=== PATIENT | male | born 1965 ===

== ENCOUNTER 2020-07-17 14:53 | Emergency (ER) | payer OTHER, SELFPAY ==
[2020-07-17 15:01] VITALS: BP 144/83; PULSE 73; RESP 18; TEMP 37.1; O2SAT 98; BMI 27.9
--- NOTE | 2020-07-17 15:32 | ED_ITS ---
HPI - Wound/Laceration General Chief Complaint: Wound/Laceration Stated Complaint: injured ring finger right hand Time Seen by Provider: 07/17/20 15:00 Source: patient Mode of arrival: Ambulatory Limitations: no limitations History of Present Illness HPI narrative: Patient is a 54-year-old male who presents with right ring finger injury. He was doing some woodworking with a joint are it slipped and kicked back injuring his distal tip of his finger. He immediately wrapped it he has no numbness or tingling. Onset (ago): hour(s) Related Data Home Medications Medication Instructions Recorded Confirmed bupropion HCl 300 mg 24 hr tablet, 300 mg PO QAM 11/27/18 11/27/18 extended release citalopram 20 mg tablet 20 mg PO DAILY 11/27/18 11/27/18 Previous Rx's Medication Instructions Recorded cephalexin [Keflex] 500 mg PO TID #21 cap 07/17/20 hydrocodone-acetaminophen 1 tab PO Q6H PRN #10 tab 07/17/20 Allergies Allergy/AdvReac Type Severity Reaction Status Date / Time No Known Drug Allergies Allergy Unverified 11/27/18 13:17 Review of Systems Review of Systems Narrative: GENERAL: Denies chills,fever HEENT: Denies throat pain RESPIRATORY: Denies dyspnea, cough, wheezing CARDIOVASCULAR: Denies chest pain, palpitations GASTROINTESTINAL: Denies nausea, vomiting MUSCULOSKELETAL: Denies extremity pain, injury SKIN: See HPI NEUROLOGIC: Denies weakness, dizziness, headache, numbness 8 point review of systems is negative except for those stated above and HPI Patient History Social History Smoking Status: Never smoker Smoking Status: Never smoker Substance Use Type: does not use Exam Initial Vital Signs Initial Vital Signs: Vital Signs Temperature 98.7 F 07/17/20 15:01 Pulse Rate 73 07/17/20 15:01 Respiratory Rate 18 07/17/20 15:01 Blood Pressure 144/83 H 07/17/20 15:01 Pulse Oximetry 98 07/17/20 15:01 GENERAL: Well-appearing, well-nourished and in no acute distress. CARDIOVASCULAR: peripheral pulses in tact, cap refill <2 sec RESPIRATORY: No respiratory distress, speaks in full sentences without difficulty EXTREMITIES: Normal range of motion, no clubbing or edema. Neurovascularly intact NEUROLOGICAL: Cranial nerves II through XII grossly intact. Normal gait and speech. SKIN: Right ring finger nail bed seems to be really moved GI Inspection: non-distended Palpation: soft, no hepatosplenomegaly, No guarding, No pulsatile mass and No tender Auscultation: normal bowel sounds Skin Fingers- Fingertip Back: 1. Finger nail is completely removed blood clot is noted. Neurovascularly intact Course Orders Ordered: ED Orders 07/17/20 15:35 XR finger RT min 2V Stat 07/17/20 15:38 COVID19 Stat Discontinued Medications Cefazolin Sodium (Cefazolin 1 Gm Vial) 1 gm IV NOW ONE Stop: 07/17/20 16:08 Last Admin: 07/17/20 16:39 Dose: Not Given Documented by: SWETA Cefazolin Sodium/Dextrose (Ancef) 1 gm in 50 mls @ 200 mls/hr IV NOW ONE Stop: 07/17/20 16:36 Last Admin: 07/17/20 16:34 Dose: 200 mls/hr Documented by: SWETA Vital Signs Vital signs: Vital Signs - 8 hr 07/17/20 15:01 07/17/20 17:45 Temperature 98.7 F Pulse Rate 73 84 Respiratory Rate 18 16 Blood Pressure 144/83 H 134/67 Pulse Oximetry 98 97 MDM - Wound/Laceration Lab Data Labs: Lab Results 07/17/20 Range/Units 15:38 COVID-19 PCR Negative (Negative) Imaging Data Extremity x-ray #1: Radiologist's Impression: PROCEDURE: XR FINGER RT MIN 2V INDICATIONS: 4th finger cut with wood tool TECHNIQUE: AP hand, 2 views of the ring finger(s) acquired. COMPARISON: None. FINDINGS: Bones: No displaced fracture. Subtle lucency along the distal aspect of the d istal phalanx noted on the frontal and oblique view views without definite correlation on the lateral view. No dislocation. Soft tissues: Soft tissue abnormality of the distal ring finger with overlying bandage. IMPRESSION: Lucency along the distal aspect of the distal phalanx noted on the frontal and oblique views may represent nondisplaced fracture versus artifact from overlying bandage. If clarification is necessary, consider repeat exam without bandage. Dictated by: Tomas Lagos D.O. on 07/17/2020 at 15:01 [facility] Narrative Medical decision making narrative: Dr. Elizabeth has been notified of patient. At this time recommends dressing and follow-up in clinic tomorrow Patient has been irrigated by myself and given 1 dose of Ancef. COVID is negative and tetanus is up-to-date. Discharge Plan Departure Patient Disposition: Home Clinical Impression: Laceration of right ring finger Qualifiers: Encounter type: initial encounter Damage to nail status: with damage Foreign body presence: without foreign body Qualified Code(s): S61.314A - Laceration without foreign body of right ring finger with damage to nail, initial encounter Instructions: DI for Laceration Repair Activity Restrictions/Additional Instructions: *You have been diagnosed with right ring finger laceration *What to do: At this time recommend follow-up with Orthopedics. Keep bandage on at least until tomorrow. And then you may remove keep clean with soap and water. Apply new bandage *Continue to take medications as directed Keflex 500 mg 3 times a day for 7 days [place] 1 tablet every 6 hours if needed for severe pain *Follow up with your primary care provider in 2-[address] Elizabeth orthopedics tomorrow to schedule follow-up appointment *Return to ER if you should have increasing redness pus or swelling or any new, worsening or concerning symptoms CONTROLLED SUBSTANCE DISCHARGE (Narcotoic/benzodiazepine/Flexeril/Phenergan) 1. You have been prescribed narcotic medications, it does have acetaminop hen/Tylenol/paracetamol in it so do not take extra Tylenol or Tylenol containing products TRAMADOL DOES NOT CONTAIN TYLENOL 2. Please understand that we cannot provide further refills of narcotics, benzodiazepines or controlled substances through the ED and her pain management will need to be through your provider. 3. While on these medications you cannot drive or operate heavy machinery. 4. You cannot sign legal documents or perform any duties such as this. 5. As long as you're taking opiate pain medications he should also be taking a stool softener such as Colace, Dulcolax, MiraLAX or prune juice, to help avoid constipation. Prescriptions: New hydrocodone-acetaminophen 5-325 mg tablet 1 tab PO Q6H PRN (Reason: pain) Qty: 10 RF: 0 cephalexin [Keflex] 500 mg capsule 500 mg PO TID Qty: 21 RF: 0 No Action citalopram 20 mg tablet 20 mg PO DAILY RF: 0 bupropion HCl 300 mg tablet extended release 24 hr 300 mg PO QAM RF: 0 Referrals: Patel Elizabeth MD [Physician] -
--- NOTE | 2020-07-17 15:35 | DI.RAD.S_ITS ---
PROCEDURE: XR FINGER RT MIN 2V INDICATIONS: 4th finger cut with wood tool TECHNIQUE: AP hand, 2 views of the ring finger(s) acquired. COMPARISON: None. FINDINGS: Bones: No displaced fracture. Subtle lucency along the distal aspect of the distal phalanx noted on the frontal and oblique view views without definite correlation on the lateral view. No dislocation. Soft tissues: Soft tissue abnormality of the distal ring finger with overlying bandage. IMPRESSION: Lucency along the distal aspect of the distal phalanx noted on the frontal and oblique views may represent nondisplaced fracture versus artifact from overlying bandage. If clarification is necessary, consider repeat exam without bandage. Dictated by: Tomas Lagos D.O. on 07/17/2020 at 15:01 Approved by: Tomas Lagos D.O. on 07/17/2020 at 15:03
[2020-07-17 16:00] LABS: COVID19 -Nasal RAPID Negative (Negative)
[2020-07-17] MEDS: CEFAZOLIN 1 GM/50 ML FROZ.PIGGY IV (16:34)
[2020-07-17] MEDS: LIDOCAINE 1% (PF) 4 ML (16:38)
[2020-07-17 17:45] VITALS: BP 134/67; PULSE 84; RESP 16; O2SAT 97
== END 2020-07-17 17:45 | disposition home or self-care (01) ==
PROVIDERS: Emergency Provider Emergency Medicine
DX: S61.314A Laceration without foreign body of right ring finger with damage to nail, initial encounter (principal)
CPT/HCPCS: 73140; 87635; 96365; 99283; 99284